=== PATIENT | male | born 1985 | race Two or more races ===

== ENCOUNTER 2018-05-12 13:34 | Emergency (ER) | payer OTHER ==
[~2018-05-12] VITALS: Ht 167.6 cm; Wt 88.5 kg
[2018-05-12] MEDS ORDERED: NKM (14:10)
[2018-05-12 14:20] VITALS: BP 133/83
--- NOTE | 2018-05-12 14:28 | Emergency Room Report ---
History of Present Illness General Chief Complaint: Pain Source: Patient Present Illness HPI 32-year-old male presents to the emergency department complaining of persistent symptoms 3-4 weeks of paresthesias and discomfort that he rates as 4 out of 10 in severity and the bilateral hands just distal to the wrist. Patient reports on occasion he does have symptoms on the lateral elbow area. He reports that he was told that he may have carpal tunnel as he does a lot of repetitive fine movements with his hands for work. Patient states that he has been attempting to relieve his symptoms with Motrin and that in the very beginning he had some relief however it is no longer riding as much as it initially was. He denies trauma or fall denies rashes, lesions, bruises, swelling or open wounds. Patient reports that he rates a normal diet. Denies hx of neck injury. Allergies: Coded Allergies: No Known Allergies (Unverified , 05/12/18) Patient History Past Medical History: see triage record Past Surgical History: none Pertinent Family History: none Immunizations: UTD Reviewed Nursing Documentation: PMH: Agreed; PSxH: Agreed Nursing Documentation-PMH Past Medical History: No Stated History Review of Systems All Other Systems: negative except mentioned in HPI Physical Exam Vital Signs Date Time Temp Pulse Resp B/P (MAP) Pulse Ox O2 Delivery O2 Flow Rate FiO2 05/12/18 14:06 98.5 74 16 133/83 95 Room Air 98.4 Sp02 EP Interpretation: reviewed, normal General Appearance: no apparent distress, alert, GCS 15, non-toxic Head: normocephalic, atraumatic Eyes: bilateral eye normal inspection, bilateral eye PERRL ENT: hearing grossly normal, normal voice Neck: full range of motion Respiratory: lungs clear, normal breath sounds, speaking full sentences Cardiovascular #1: regular rate, rhythm, normal capillary refill Cardiovascular #2: 2+ radial (R), 2+ radial (L) Musculoskeletal: back normal, gait/station normal, normal range of motion, tender - mild tenderness to the brachioradialis of the right hand. positive tinnels sign, phalens sign Neurologic: alert, oriented x3, responsive, motor strength/tone normal, sensory intact, speech normal, grossly normal Psychiatric: judgement/insight normal Skin: normal color, no rash, warm/dry, well hydrated Medical Decision Making PA Attestation Dr. Harden is my supervising Physician whom patient management has been discussed with. Diagnostic Impression: Primary Impression: Overuse syndrome of multiple sites Additional Impression: Carpal tunnel syndrome, bilateral upper limbs ER Course 32-year-old male presents to the emergency department complaining of persistent symptoms 3-4 weeks of paresthesias and discomfort that he rates as 4 out of 10 in severity and the bilateral hands just distal to the wrist. Patient reports on occasion he does have symptoms on the lateral elbow area. He reports that he was told that he may have carpal tunnel as he does a lot of repetitive fine movements with his hands for work. Patient states that he has been attempting to relieve his symptoms with Motrin and that in the very beginning he had some relief however it is no longer riding as much as it initially was. He denies trauma or fall denies rashes, lesions, bruises, swelling or open wounds. Patient reports that he rates a normal diet. Denies hx of neck injury. Ddx considered but are not limited to full Tylenol, overuse syndrome, cyanocobalamin deficiency, neuropathy just to name a few. Vital signs: are WNL, pt. is afebrile H&PE are most consistent with Overuse syndrome ORDERS: none required at this time, the diagnosis is clinical ED INTERVENTIONS: left wrist splint applied by oracle technical architect. Pt. remains neurovascularly intact. Right wrist Splint applied by oracle technical architect. Pt. remains neurovascularly intact. Pt. is highly recommended for production support specialist due to having advanced symptoms of overuse. may require more aggressive treatment. -I do not identify an emergent condition at this time. With current presentation , pt. is stable for close outpatient follow up and conservative treatment. D/ w pt. to return promptly to ED with worsening or new symptoms.- Pt. (and or responsible libertarian) verbalizes' understanding and agreement with proposed treatment plan.proposed treatment plan. DISCHARGE: At this time pt. is stable for d/c to home. Will provide printed patient care instructions, and any necessary prescriptions. Care plan and follow up instructions have been discussed with the patient prior to discharge. Last Vital Signs Date Time Temp Pulse Resp B/P (MAP) Pulse Ox O2 Delivery O2 Flow Rate FiO2 05/12/18 14:20 98.4 74 16 133/83 95 Room Air 98.4 Disposition: HOME, SELF-CARE Condition: Stable Scripts Naproxen* (NAPROXEN*) 500 Mg Tablet. 500 MG ORAL TWICE A DAY, #30 TAB Prov: Alicia Menchaca 05/12/18 Departure Forms: Return to Work Return to Work Date: May 16, 2018 Work Restrictions: No Heavy Lifting Other Restrictions: light duty x 1 week. minimze repetitive movement of the handsand elbows Return to Full Activity: May 23, 2018 Patient Instructions: Carpal Tunnel Syndrome Additional Instructions: Take medications as directed. Follow up with a Primary Care Provider in 3-5 days, even if your symptoms have resolved. --Please review list of primary care clinics, if you do not already have a primary care provider Return sooner to ED if new symptoms occur, or current symptoms become worse. - Please note that this Emergency Department Report was dictated using [employer] secretary technology software, occasionally this can lead to erroneous entry secondary to interpretation by the dictation equipment. Alicia Menchaca May 12, 2018 14:28
[2018-05-12] MEDS ORDERED: NAPROXEN500 M1 ORAL (14:29)
== END 2018-05-12 15:20 | disposition home or self-care (01) ==
LOC: EMR 14:23
DX: G56.03 Carpal tunnel syndrome, bilateral upper limbs (principal); M70.842 Other soft tissue disorders related to use, overuse and pressure, left hand; M70.841 Other soft tissue disorders related to use, overuse and pressure, right hand
CPT/HCPCS: 99283